=== PATIENT | female | born 1985 ===

== ENCOUNTER → 2016-03-12 | Outpatient (CLI) | payer BC, OTHER ==
--- NOTE | 2016-03-12 15:46 | REP ---
Left ankle series: Four views. History: Acute left ankle pain. Findings: There is a bimalleolar fracture of the left ankle with medial ankle mortise widening and diffuse periarticular swelling. Horizontal fracture is seen through the medial malleolus. An oblique distal fibular rafael metaphyseal fracture is seen. The posterior tibia appears intact on lateral radiograph. Impression: Bimalleolar ankle fracture with medial mortise widening. Diffuse swelling. Signed by Sandip Wahl MD 03/12/2016 04:02 P
--- NOTE | 2016-03-12 15:47 | REP ---
Left TIB-fib series: Two views. History: Pain in the left lower leg. Findings: There is diffuse swelling distally about the bimalleolar ankle fracture identified on the ankle series radiographs. TIB-fib views show no more proximal tibial or fibular fracture. Impression: No other fracture seen. Signed by Sandip Wahl MD 03/12/2016 04:03 P
== END ==
LOC: M LRY 12:54
PROVIDERS: ATTEND Physician Assistant
DX: S82.842A Displaced bimalleolar fracture of left lower leg, initial encounter for closed fracture (principal); X58.XXXA Exposure to other specified factors, initial encounter; Y92.89 Other specified places as the place of occurrence of the external cause; Y93.89 Activity, other specified; Y99.8 Other external cause status